=== PATIENT | female | born 1955 | race Caucasian/White ===

== ENCOUNTER 2020-05-20 11:08 | Emergency (ER) | payer OTHER ==
[~2020-05-20] VITALS: Ht 152.4 cm; Wt 89.4 kg
[2020-05-20] MEDS ORDERED: TOPROL XL50 MG PO (11:58)
[2020-05-20] MEDS ORDERED: LYRICA25 MG PO (11:59)
[2020-05-20] MEDS ORDERED: PLAVIX75 MG PO (11:59)
[2020-05-20] MEDS ORDERED: GLUCOPHAGE500 MG PO (11:59)
[2020-05-20] MEDS ORDERED: NEURONTIN400 MG PO (12:00)
[2020-05-20] MEDS ORDERED: PERCOCET 5-3251 EACH PO (14:43)
== END 2020-05-20 15:04 | disposition home or self-care (01) ==
LOC: ED 11:08
DX: S42.201A Unspecified fracture of upper end of right humerus, initial encounter for closed fracture (principal); W01.198A Fall on same level from slipping, tripping and stumbling with subsequent striking against other object, initial encounter; Z88.0 Allergy status to penicillin; Z79.899 Other long term (current) drug therapy; Z79.84 Long term (current) use of oral hypoglycemic drugs
CPT/HCPCS: 73030; 73080; 96372; 99283-25; J1170; J1885

== ENCOUNTER 2020-05-23 17:07 | Emergency (ER) | payer OTHER ==
[~2020-05-23] VITALS: Ht 152.4 cm; Wt 89.4 kg
[~2020-05-23 17:07] MED LIST: GLUCOPHAGE500 MG PO; LYRICA25 MG PO; NEURONTIN400 MG PO; PERCOCET 5-3251 EACH PO; PLAVIX75 MG PO; TOPROL XL50 MG PO
--- OUTSIDE RECORDS SUMMARY | 2020-05-23 17:10 | XMS ---
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 Selena has no Care Guidelines for this patient. Es VISIT COUNT (12 MO.) 2 [facility] [place] [facility]. TOTAL 2 NOTE: Visits indicate total known visits. ED/C VISIT TRACKING (12 MO.) 05/23/2020 17:08 [facility] [place] TYPE: Emergency COMPLAINT: - ARM PAIN 05/20/2020 11:09 [facility] [place] TYPE: Emergency COMPLAINT: - FALL, RIGHT ARM PAIN INPATIENT VISIT TRACKING (12 MO.) No inpatient visits to display in this time frame [email or web address]
[2020-05-23] MEDS ORDERED: SIMVASTATIN20 MG PO (17:24)
[2020-05-23] MEDS ORDERED: HYDROCHLOROTHIA25 MG PO (17:25)
[2020-05-23] MEDS ORDERED: LOSARTAN POTASS25 MG PO (17:25)
[2020-05-23] MEDS ORDERED: BACLOFEN10 MG PO (17:26)
[2020-05-23] MEDS ORDERED: PERCOCET 5-3251 EACH PO (18:36)
== END 2020-05-23 18:48 | disposition home or self-care (01) ==
LOC: ED 17:07
DX: S42.301D Unspecified fracture of shaft of humerus, right arm, subsequent encounter for fracture with routine healing (principal); W19.XXXD Unspecified fall, subsequent encounter; E11.9 Type 2 diabetes mellitus without complications; I10 Essential (primary) hypertension; Z87.891 Personal history of nicotine dependence; Z88.0 Allergy status to penicillin; Z79.899 Other long term (current) drug therapy; Z79.84 Long term (current) use of oral hypoglycemic drugs
CPT/HCPCS: 96372; 99283; J1170

== ENCOUNTER 2020-06-07 15:19 | Emergency (ER) | payer MEDICARE ==
[~2020-06-07] VITALS: Ht 152.4 cm; Wt 89.4 kg
[~2020-06-07 15:19] MED LIST changes: +BACLOFEN10 MG PO; +HYDROCHLOROTHIA25 MG PO; +LOSARTAN POTASS25 MG PO; +SIMVASTATIN20 MG PO
--- OUTSIDE RECORDS SUMMARY | 2020-06-07 15:22 | XMS ---
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 Selena has no Care Guidelines for this patient. Es VISIT COUNT (12 MO.) 3 [facility]. TOTAL 3 NOTE: Visits indicate total known visits. ED/C VISIT TRACKING (12 MO.) 06/07/2020 15:20 [facility] [place] TYPE: Emergency COMPLAINT: - RIGHT ARM PAIN 05/23/2020 17:08 [facility] [place] TYPE: Emergency COMPLAINT: - ARM PAIN DIAGNOSES: - Type 2 diabetes mellitus without complications - Other joint terminal attack controller (current) drug therapy - Unspecified fall, subsequent encounter - Essential (primary) hypertension - Unspecified fracture of shaft of humerus, right arm, subsequent encounter for fracture with routine healing - Personal history of nicotine dependence - penitentiary (current) use of oral hypoglycemic drugs - Allergy status to penicillin 05/20/2020 11:09 [facility] [place] TYPE: Emergency COMPLAINT: - FALL, RIGHT ARM PAIN DIAGNOSES: - Pain in right shoulder - Fall on same level from slipping, tripping and stumbling with subsequent striking against other object, initial encounter - Other joint terminal attack controller (current) drug therapy - penitentiary (current) use of oral hypoglycemic drugs - Unspecified fracture of upper end of right humerus, initial encounter for closed fracture - Allergy status to penicillin INPATIENT VISIT TRACKING (12 MO.) No inpatient visits to display in this time frame [email or web address]
[2020-06-07] MEDS ORDERED: PERCOCET 5-3251 EACH PO (16:52)
== END 2020-06-07 17:25 | disposition home or self-care (01) ==
LOC: ED 15:19
DX: S49.001A Unspecified physeal fracture of upper end of humerus, right arm, initial encounter for closed fracture (principal); V43.62XA Car passenger injured in collision with other type car in traffic accident, initial encounter; I10 Essential (primary) hypertension; E11.9 Type 2 diabetes mellitus without complications; Z87.891 Personal history of nicotine dependence; Z88.0 Allergy status to penicillin; Z79.899 Other long term (current) drug therapy; Z79.84 Long term (current) use of oral hypoglycemic drugs
CPT/HCPCS: 73060; 96374; 96375; 99284-25; J1170; J1885

== ENCOUNTER 2020-09-18 08:50 | Observation (INO) | payer MEDICARE ==
[~2020-09-18] VITALS: Ht 154.9 cm; Wt 91.8 kg
[~2020-09-18 08:50] MED LIST changes: +ACYCLOVIR400 MG PO; +ARMOUR THYROID30 MG PO; +COZAAR50 MG PO; +JARDIANCE25 MG PO; -LOSARTAN POTASS25 MG PO; +LYRICA150 MG PO; -LYRICA25 MG PO; +NEURONTIN100 MG PO; -NEURONTIN400 MG PO; +OMEPRAZOLE20 MG PO; +OXYCODONE HCL5 MG PO; +TOPROL XL25 MG PO; -TOPROL XL50 MG PO
--- NOTE | 2020-09-18 12:41 | NUR ---
09/18/20 1241 Angela Gutierrez- PT ARRIVES TO PACU NONAROUSABLE TO NOXIOUS STIMULI WITH AN OPA IN PLACE. RESP EVEN AND UNLABORED. OXYGEN SAT HIGH 90'S ON 6L VIA MASK.
--- NOTE | 2020-09-18 14:20 | NUR ---
REPORT RECEIVED FROM PUBLIC HEALTH AIDE AND PT CARE RESUMED. PT. BROUGHT ON STRETCHER ON 2L O2 NC. PT. DESATS FREQUENTLY WHILE SLEEPING BUT O2 SAT INCREASES GREATER THAN 90% WHEN AWAKENED. PACU REPORTS SHE HAS SLEEP APNEA. LEFT CHEST DRESSING C.D.I. WITH JOHN DRAINS. DRAINS HAVE A SMALL AMOUNT OF SANGUINOUS DRAINAGE IN EACH. IVF STARTED AND VITALS STABLE. PT. IS DROWSY AND ORIENTED TO ALL BUT DATE. PT. ON CPOX AND LEFT RESTING WITH BROTHER AT BEDSIDE.
--- NOTE | 2020-09-18 14:42 | NUR ---
PATIENT ON 2L VIA NC DUE TO SATS AT 87% ON ROOM AIR. PATIENT HAS IVF INFUSING, LR @ 85. PATIENT IS AWAKE AND EATING CRACKERS, SIPPIN ON SODA. PATIENT HAS ORDERED SANDWICH.
--- NOTE | 2020-09-18 15:20 | NUR ---
VITALS STABLE. LEFT CHEST DRESSING C.D.I. AND PT. REPORTS TOLERABLE PAIN THAT IS BURNING AT TIMES. [facility]
--- NOTE | 2020-09-18 16:20 | NUR ---
VITALS STABLE. LEFT CHEST DRESSING IS CDI. PT. REPORTS AMBULATED TO THE COMMODE WITH SBA AND TOLERATED WELL. VOIDED GREEN/YELLOW CLEAR URINE. PT. REPORTS INCREASED PAIN IN RIGHT ARM WHERE THERE IS A FRACTURE AND LEFT CHEST. ADMIN PRN MEDS.
--- NOTE | 2020-09-18 17:20 | NUR ---
VITALS STABLE. PT. REPORTS PAIN IN LEFT CHEST TOLERABLE. ALERT AND ORIENTED. TOLERATING SOLID FOODS. LEFT CHEST DRESSING CDI. BROTHER EDUCATED AND TEACH BACK USED ON EMPTYING JOHN DRAINS. PT. LEFT RESTING WITH CALL LIGHT IN REACH.
[2020-09-18] MEDS ORDERED: CLOBETASOL PROP50 ML TOP (18:19)
--- NOTE | 2020-09-18 19:00 | NUR ---
SHIFT REPORT RECEIVED FROM LEWIS LUI. PT RESTING IN CHAIR, NO NEEDS. ARA LOPEZ IN ROOM.
--- NOTE | 2020-09-18 19:37 | NUR ---
RN AMBULATORY ROUNDING NOTE. 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 PT INQUIRES ABOUT SCHEDULED MEDCIATIONS, EDUCATION PROVIDED. PT INQUIRES ABOUT NEED FOR BREAKTHROUGH PAIN MEDICATION ONCE THE BLOCK WEARS OFF. EDUCATION PROVIDED. PT DENIES FURTHER QUESTIONS, CONCERNS AT THIS TIME. COOKIE PROVIDED PER REQUEST. PT DENIES FURTHER NEEDS. CALL LIGHT IN REACH. WHITE BOARD UDPATED.
--- NOTE | 2020-09-18 20:12 | NUR ---
ASSESSMENT COMPLETED. GCS 15, A&O X4. PT COMPLAINS OF ABD CRAMPING AND MULTIPLE TRIPS TO BR AFTER RECEIVNG LACTULOSE, EDUCATION PROVIDED. LUNGS CLEAR. HEART TONES IRREGULAR. ABD SOFT, TENDER, MILDLY DISTENDED, BOWEL TONES ACTIVE. CMS INTACT. 1+ BLE EDEMA. IVs WNL, CDI, FLUSHED WELL. VS AND I&O COMPLETED BY LORE LOPEZ. NO OTHER NEEDS AT THIS TIME. CALL LIGHT IN REACH.
--- NOTE | 2020-09-18 21:25 | NUR ---
IN TO GET VITALS, I&Os DONE, DIET PEPSI PROVIDED AT THIS TIME, PT OK'D BP ON RIGHT UPPER ARM
--- NOTE | 2020-09-18 21:31 | NUR ---
ASSESSMENT COMPLETED. PT DENIES PAIN. SCHEDULED MEDS PROVIDED. IV FLUIDS INFUSING PER ORDER. LUNGS CLEAR, HEART TONES REGULAR. LEFT CHEST INCISION CDI. JOHN DRESSING CDI, DRAINS EMPTIED, SS DRAINAGE. ABD SOFT, NONTENDER, BOWEL TONES ACTIVE. CMS INTACT IN ALL BUT RIGHT ARM WHICH HAS DECREASED MOTOR. IV WNL, CDI, FLUSHED WELL. NO OTHER NEEDS AT THIS TIME. CALL LIGHT IN REACH.
--- NOTE | 2020-09-18 22:40 | NUR ---
PT STATES SHE HAS ITCHING AND NAUSEA, PRN ZOFRAN PROVIDED. NO OTHER NEEDS. CALL LIGHT IN REACH.
--- NOTE | 2020-09-18 22:50 | NUR ---
CALL LIGHT ON, SBA PT UP TO THE TOILET, PT THEN BACK TO BED, RN ASST TO BOOST PT AND CHECK ON PTs PAIN, NO FURHTER NEEDS AT THIS TIME
--- NOTE | 2020-09-18 22:57 | NUR ---
PT REPORTS 7/10 PAIN IN CHEST AND RIGHT ARM. PRN PAIN MED PROVIDED. NO OTHER NEEDS AT THIS TIME.
--- NOTE | 2020-09-19 00:54 | NUR ---
in to provide pt with ice chips and rifilled diet pepsi, no further needs
--- NOTE | 2020-09-19 01:24 | NUR ---
NEW BAG IV FLUIDS PROVIDED. PT UP TO BR AND BACK TO BED. VS AND I&O COMPLETED. NO OTHER NEEDS. CALL LIGHT IN REACH.
--- NOTE | 2020-09-19 03:18 | NUR ---
PT CALLED, SBA WITH IV TO THE TOILET, THEN TO BED, DIET SODA REFILLED, NO FURTHER NEEDS
--- NOTE | 2020-09-19 03:28 | NUR ---
ASSESSMENT COMPLETED. PT PAIN 7/10 IN CHEST AND RIGHT ARM, PRN PAIN MED PROVIDED. SLIGHT SHADOWING ON JOHN DRAIN DRESSING. 2 PINPOINT BLOOD SPOTS ON INCISION DRESSING. JOHN DRAINS WNL, SS DRAINAGE. GCS 15, A&O X4. PT CAN BE FORGETFUL AT TIMES. ABD SOFT, NONTENDER, BOWEL TONES ACTIVE, PT STATES NORMAL. CMS INTACT IN ALL BUT RIGHT ARM WHICH HAS DECREASED MOTOR. IV WNL. CPOX 96% RA. SCDs ON. IV FLUIDS INFUSING. NO OTHER NEEDS AT THIS TIME. CALL LIGHT IN REACH.
--- NOTE | 2020-09-19 05:30 | NUR ---
IN ROOM TO ADMINISTER SCHEDULED TYLENOL AND THYROID MEDICATION PER REQUEST OF PRIMARY RN RODNEY. pt REPORTS INCREASING PAIN TO LEFT CHEST INCISION SITE. pt ALSO REPORTS GENERALIZED ITCHINESS, REPORTS ITCHING IF SHE DOESN'T RECEIVE HER SCHEDULED MEDS, SCHEDULED THYROID GIVEN MENTIONED ABOVE. PRIMARY RN AWARE OF REPORTS OF ITCHING. JESSICA TORREZ IN ROOM TO COLLECT VS AND I&O'S. CALL LIGHT IN REACH.
--- NOTE | 2020-09-19 05:35 | NUR ---
IN TO GET VITALS, RN IN FOR AM MED, PT NOW UP TO VOID, SBA WITH IV POLE, ICE WATER TOPPED OFF, NO FURTHER NEEDS AT THIS TIME
--- NOTE | 2020-09-19 05:57 | NUR ---
PATIENT CALLED BUILDING ESTIMATOR SYSTEM FOR BREAKFAST ORDER TO BE CHANGED AND FOR ASSISTANCE WITH TANGLED CORDS. PATIENT HAS CALL LIGHT IN REACH. DENIES ANY FUTHER NEEDS AT THIS TIME.
--- NOTE | 2020-09-19 06:13 | NUR ---
PT PAIN MANAGED WITH SCHEDULED AND PRN MEDS. DRESSINGS WNL. PT HAD 80ML SS OUTPUT TOTAL FROM JOHN DRAINS. VSS. UOS. AFEBRILE. IV WNL. SBA FOR TRANSFERS. RIGHT ARM POSITIONED ON PILLOWS FOR COMFORT. PT COMPLAINED OF ITCHING, STATES IT WAS RELIEVED BY EATING ICE. PT HAD ONE EPISODE OF NAUSEA WITH A PAIN MED.
--- NOTE | 2020-09-19 06:47 | NUR ---
CPOX ALARMING, SPD ALERT, FIXED SETTING, NO FURTHER NEEDS
[2020-09-19] MEDS ORDERED: IBUPROFEN600 MG PO (10:05)
[2020-09-19] MEDS ORDERED: OXYCODON-ACETA1 EAC2 PO (10:05)
[2020-09-19] MEDS ORDERED: ACETAMINOPHEN500 MG PO (10:05)
--- NOTE | 2020-09-19 11:28 | OR ---
[facility] [address], [place] [address] Signed DATE OF OPERATION: 09/18/2020 SURGEON: Georgina Maya MD PREOPERATIVE DIAGNOSES: 1. Left infiltrating ductal breast carcinoma, upper outer aspect near the areolar margin. 2. Obesity. POSTOPERATIVE DIAGNOSES: 1. Left infiltrating ductal breast carcinoma, upper outer aspect near the areolar margin. 2. Obesity. 3. [place] lymph node, deep axilla, negative on frozen exam. PROCEDURES: 1. Injection of methylene blue dye for sentinel lymph node identification. 2. Deep axillary sentinel lymph node biopsy x4. 3. Left total mastectomy. ANESTHESIA: General LMA; Dolly Ruiz CRNA and preoperative serratus block (ropivacaine and Decadron). INDICATION: This 65-year-old white woman [facility] was found on mammogram to have a finding in the left breast considered suspicious for malignancy. On September 10, 2020, she underwent image-guided biopsy by Dr. Keegan Chaves, which confirmed infiltrating ductal carcinoma, grade 1. There was no evidence of lymphovascular invasion. There was no in situ component. The lesion is palpable and located in the upper outer aspect near the areolar margin. There is no sign of axillary adenopathy clinically. Her chest x-ray is normal. The patient does have family history of breast cancer in her mother and maternal grandmother. She has had annual mammograms annually. She has been presented options of breast conservation therapy including partial mastectomy, radiation therapy and sentinel lymph node biopsy, but strongly prefers to have total mastectomy, sentinel lymph node biopsy, possible axillary dissection. Those discussions were outlined elsewhere. The risks of bleeding, infection, cosmetic deformity, and so forth were reviewed with her in detail. Given the size of the mass, it is uncertain if adjuvant radiation therapy will be necessary... that will depend on the final pathologic findings related to tumor size. Electronically Signed By: GEORGINA MAYA MD 09/19/20 1128 PATIENT NAME: CARLO FLORIAN OPERATIVE REPORT DATE OF : 55 REPORT #: [id number] PHYSICIAN: GEORGINA MAYA MD PCP: BERNARDA FORD MD REPORT IS CONFIDENTIAL AND NOT TO BE RELEASED WITHOUT AUTHORIZATION [facility] [address], [place] [address] Signed FINDINGS: Four blue sentinel lymph node were identified and frozen pathology on two of the four showed no evidence of metastatic disease. The two smaller nodes were deemed unacceptable for frozen evaluation due some technical limitations of the microtome tody and were preserved for permanent pathology. There was no sign of worrisome adenopathy on palpation. Good uptake of methylene blue dye, in four sentinel lymph nodes was noted. DESCRIPTION OF PROCEDURE: The patient was brought to the operating room, given a general anesthetic by LMA technique. A serratus block on the left side was undertaken in the preop staging area. In the supine position, 1.5 mL of methylene blue dye was injected in the left lateral periareolar area for sentinel lymph node identification. The breast and upper torso and arm were prepared with a chlorhexidine based solution. An elliptical incision was made incorporating the nipple-areolar complex. Superior and inferior flaps were developed with electrocautery dissection on this occasion. The breast was excised in a superior medial to lateral position, excising the pectoralis fascia in continuity with the breast itself. The palpable mass was widely free of the resection margin. Upon arriving at the lateral margin of the pectoralis muscle the axillary fat pad was easily identified. Examination for methylene blue laden lymph nodes were undertaken. None were immediately evident and therefore the fascial plane was incised with electrocautery and blunt dissection undertaken identifying promptly four small blue sentinel lymph nodes, they were all excised and passed for frozen pathology. Hemostasis in this area of dissection was undertaken primarily with 2-0 silk suture. Irrigation was undertaken with sterile water for its tumor lytic effect, any stray areas of oozing were secured with electrocautery. Note is made of low axillary lymph nelson tissue having been excised in continuity with the breast as there were some palpable but not suspicious lymph nodes within the lower aspect of the axilla itself. Frozen pathology returned and reported by Dr. Chris showing that the two largest methylene blue laden lymph nodes were negative for metastatic disease. The other two lymph nodes which were much smaller were deemed inadvisable for frozen pathology as the microtome in the lab would more likely than not destroy the tissue and therefore those two were left for permanent pathology. Electronically Signed By: GEORGINA MAYA MD 09/19/20 1128 PATIENT NAME: CARLO FLORIAN OPERATIVE REPORT DATE OF : 55 REPORT #: [id number] PHYSICIAN: GEORGINA MAYA MD PCP: BERNARDA FORD MD REPORT IS CONFIDENTIAL AND NOT TO BE RELEASED WITHOUT AUTHORIZATION [address] [address] Signed Through two separate stab incisions, 10 mm flat Jf drains were placed one beneath the flap, the other in the mid axilla. The wound was closed with interrupted 2-0 Vicryl in deep dermal layer and running subcuticular 3-0 Vicryl for the skin itself. Steri-Strips were applied as was a silver sponge dressing (Acticoat type). The drains were secured to bulb suction. Good vascularity of the superior and inferior flaps was noted. Blood loss was estimated at 100 mL. Sponge, needle and instrument counts reported as correct x3. MD RIKA Nguyen/MODL /[id number] cc: MD Dr. Bernarda Caro Copies: KEEGAN CHAVES MD ~ Electronically Signed By: GEORGINA MAYA MD 09/19/20 1128 PATIENT NAME: CARLO FLORIAN OPERATIVE REPORT DATE OF : 55 REPORT #: [id number] PHYSICIAN: GEORGINA MAYA MD PCP: BERNARDA FORD MD REPORT IS CONFIDENTIAL AND NOT TO BE RELEASED WITHOUT AUTHORIZATION
--- NOTE | 2020-09-19 11:50 | NUR ---
ALL DISCHARGE INSTRUCTIONS REVIEWED WITH PT. AND ALL QUESTIONS ANSWERED. PT.'S SISTER WAS EDUCATED ON HOW TO EMPTY JOHN DRAINS AND DEMONSTRATED. PT. LEFT WITH ALL BELONGINGS AND ADMIN. OXYCODONE FOR INCISION PAIN PRIOR TO LEAVING.
--- NOTE | 2020-09-25 17:19 | PATH ---
[facility] [address] [place], [place] [address] Signed SPECIMEN(S): A SENTINEL LYMPH NODES 1, 2, 3, AND 4 SPECIMEN(S): B LEFT BREAST AND AXILLA SPECIMEN SOURCE: A. SENTINEL LYMPH NODES 1, 2, 3, AND 4 B. LEFT BREAST AND AXILLA CLINICAL HISTORY: Ductal breast carcinoma on left side. FROZEN SECTION DIAGNOSIS: A. [place] lymph nodes #1, #2, #3 and #4: - No evidence of malignancy in two lymph nodes (career representative sections frozen). Note: Cryostat malfunctioned and I was unable to get sections of the lymph nodes #1 and #2. Discussed with Dr. Tellez. (Dr. Chris, 11:56 AM, 09-18-2020) Frozen section diagnoses called to Dr. Tellez at 11:56 AM, 09-18-2020. FINAL PATHOLOGIC DIAGNOSIS: A. [place] lymph nodes #1-4, left axilla, excisional biopsy: - No evidence of malignancy in four lymph nodes (0/4). - See Comment and Microscopic description. B. Breast and axillary contents, left, total mastectomy: - Invasive ductal carcinoma with the following features: - Tumor site: Central. - Tumor size: 19 x 17 x 16 mm. - Histologic type: Invasive carcinoma of no special type (ductal). - Histologic grade (Randolph histologic score): - Glandular (acinar)/tubular differentiation: Score 2. - Nuclear pleomorphism: Score 2. - Mitotic rate: Score 1. - Overall grade: Grade 1 of 3 (total score 5/9). - Tumor focality: Single focus of invasive carcinoma. - Ductal carcinoma in situ (DCIS): Present, negative for extensive intraductal component (EIC). - Architectural patterns: Solid and cribriform. - Nuclear grade: Grade 2 (intermediate) - Necrosis, central (expansive "comedo" necrosis). - Margins: PATIENT NAME: CARLO FLORIAN PATHOLOGY DATE OF : 55 REPORT #: [id number] PHYSICIAN: [facility] PCP: RANJIT FORD MD REPORT IS CONFIDENTIAL AND NOT TO BE RELEASED WITHOUT AUTHORIZATION [facility] [address] [place], [place] [address] Signed - Invasive carcinoma margins: Uninvolved by invasive carcinoma. - Greater than 10 mm from superior, inferior, and posterior margins. - DCIS margins: Uninvolved by DCIS. - Greater than 10 mm from superior, inferior, and posterior margins. - Regional lymph nodes: Uninvolved by tumor cells. - Total number of lymph nodes examined: 7. - Number of sentinel nodes examined: 4. - Treatment effect in the breast: No known pre-surgical therapy. - Lymphovascular invasion: Not identified. - Additional findings: Incidental intraductal papillomas (4 mm), fibrocystic changes. - Breast biomarker studies: Please refer to previously performed testing ([id number]), reported as ER positive, DE positive, HER2 negative by IHC, and Ki-67 proliferation index of 31.4%. - Pathologic stage classification (pTNM), AJCC 8th ed.): pT1c pN0. COMMENT: Three additional axillary lymph nodes were identified within the axillary portion of the mastectomy specimen, making the total lymph node count (sentinel and nonsentinel) 7. As part of [facility] Quality Improvement Program, this case was reviewed by another member of our pathology staff. NAL:cml:C1NR MICROSCOPIC EXAMINATION: Histologic sections of all submitted blocks are examined by light microscopy. These findings, together with the gross examination, support the pathologic diagnosis. Immunohistochemical stains (with appropriately staining controls) were performed: A. Pancytokeratin (AE1/AE3) was performed on each career representative section of the sentinel lymph nodes and confirms the absence of metastatic tumor cells. B. E-cadherin and p120 demonstrate membranous staining of the tumor, supporting ductal origin. Smooth muscle myosin heavy chain on a career representative section of adenosis confirms the presence of myoepithelial cells. GROSS DESCRIPTION: Two specimens are received in two containers, labeled "FlorianJennyyn." A. The specimen, labeled `Carlo Hale, is received fresh for frozen section diagnosis and consists of four undesignated possible lymph node PATIENT NAME: CARLO FLORIAN PATHOLOGY DATE OF : 55 REPORT #: [id number] PHYSICIAN: JULIETTE PATHOLOGY PCP: RANJIT FORD MD REPORT IS CONFIDENTIAL AND NOT TO BE RELEASED WITHOUT AUTHORIZATION [place] [id number] [place], [place] [address] Signed candidates that measure from 0.6 cm up to 1.3 cm in greatest dimension. Upon removal of the adipose tissue, lymph node are 0.3-0.8 cm in greatest dimension. Nodes one and three are inked blue. Each lymph node is bisected. Half of the lymph nodes #1 and #2 frozen in (AFR1), half of nodes #3 and number for frozen as (AFR2). Remainders of #1 and #2 are submitted in (A3) and remainders of half of #3 and #4 in (A4). B. The specimen, labeled "Carlo Florian, left breast and axilla," is received in formalin and consists of 1231 gram oriented left breast that is 24.1 x 19.5 x 7.2 cm. The 25.9 x 9.7 cm ellipse of skin has a centrally located, everted nipple. The skin surface is estevez and wrinkled with a blue dye discoloration lateral to the nipple. A suture is present identifying the low axillary lymph nodes. The specimen is inked as follows: superior - blue; inferior - green; and posterior - black. The specimen is serially sectioned from medial to lateral to reveal a 1.9 x 1.7 x 1.6 cm pink ill-defined firm mass centrally located within the breast. The mass is 3.3 cm from the anterior skin, 3.6 cm from the posterior soft tissue margin, 6.5 cm from the superior soft tissue margin, 5.8 cm from the inferior soft tissue margin, 8.2 cm from the medial soft tissue margin, and 7.6 cm from the lateral soft tissue margin. Approximately 2.5 cm medial to the mass is an area of irregular nodularity that is 3.5 x 3.2 x 1.6 cm a suture identifies the low axillary lymph nodes. Sectioning through this area reveals three possible lymph nodes that measure up to 1.5 cm in greatest dimension. An additional five possible lymph nodes are grossly identified superior to the suture. Attached to the lateral aspect is a 14.5 x 5.5 x 3.6 cm axillary tail approximately 70% of the specimen is a yellow-estevez greasy adipose tissue and 30% is a white-estevez rubbery fibrous tissue. [employer] sections are submitted in 18 cassettes. Cassette summary: (B1) nipple and skin (B2) posterior soft tissue resection margin closest to mass (B3-B4) mass to adjacent fibroadipose tissue (B5-B8) irregular nodularity medial to mass submitted from superior to inferior (B9) fibroadipose tissue upper inner quadrant (B10) fibroadipose tissue upper outer quadrant (B11) fibroadipose tissue lower outer quadrant PATIENT NAME: CARLO FLORIAN PATHOLOGY DATE OF : 55 REPORT #: [id number] PHYSICIAN: JULIETTE FAULKNER PCP: RANJIT FORD MD REPORT IS CONFIDENTIAL AND NOT TO BE RELEASED WITHOUT AUTHORIZATION [facility] [address] [place], [place] [address] Signed (B12) fibroadipose tissue lower inner quadrant (B13) two possible lymph nodes, submitted whole (near suture) (B14) one possible lymph node, submitted whole, (near suture) (B15) one possible lymph node, serially sectioned (superior to suture) (B16) one possible lymph node, bisected (superior to suture) (B17) one possible lymph node, serially sectioned (superior to suture) (B18) one possible lymph node, bisected (superior suture). Cold ischemia time: 5 minutes Approximate Formalin time: 48-72 hours. FB (under the direct supervision of a pathologist) The Gross Description was prepared using a voice recognition system. The report was reviewed for accuracy; however, sound-alike word errors, addition and/or deletions may occur. If there is any question about this report, please contact Client Services. ADDITIONAL NOTES: Immunohistochemical and/or in situ hybridization studies were performed on this case with the appropriate positive controls that react as expected. This test was developed and its performance characteristics determined by [facility]. It has not been cleared or approved by the U.S. Food and Drug Administration. The FDA has determined that such clearance or approval is not necessary. This test is used for clinical purposes. It should not be regarded as investigational or for research. [facility] is certified under the Clinical Laboratory Improvement Amendments of 1988 (CLIA) as qualified to perform high complexity clinical laboratory testing. This assay has not been validated for specimens that have been decalcified. PERFORMING LABORATORY: The [facility], [address] [place] [address] (CLIA# [id number]). The technical component was performed [place] [place] [address] (Network Security Engineer: Cat Colón MD; CLIA# [id number]). Professional interpretation was performed by [facility], [address] [place] [address] (CLIA# [id number]). PATIENT NAME: CARLO FLORIAN PATHOLOGY DATE OF : 55 REPORT #: [id number] PHYSICIAN: JULIETTE PATHOLOGY PCP: RANJIT FORD MD REPORT IS CONFIDENTIAL AND NOT TO BE RELEASED WITHOUT AUTHORIZATION [place] [address] Signed Diagnostician: Willa Chris MD Pathologist Electronically Signed 09/25/2020 Copies: ~ PATIENT NAME: FLORIANCARLO PATHOLOGY DATE OF : 55 REPORT #: [id number] PHYSICIAN: JULIETTE PATHOLOGY PCP: RANJIT FORD MD REPORT IS CONFIDENTIAL AND NOT TO BE RELEASED WITHOUT AUTHORIZATION
== END 2020-09-19 11:50 | disposition home or self-care (01) ==
LOC: DS 08:50 → MS 14:15 → DS 14:20 → MS 14:21
PROVIDERS: ADMIT Surgery; ATTEND Surgery
PROC: 0HTU0ZZ Resection of Left Breast, Open Approach (ICD-10-PCS; principal; 2020-09-18 09:30)
PROC: 07D Lymphatic and Hemic Systems, Extraction (ICD-10-PCS; 2020-09-18 09:30)
DX: C50.412 Malignant neoplasm of upper-outer quadrant of left female breast (principal); D24.2 Benign neoplasm of left breast; I10 Essential (primary) hypertension; E11.9 Type 2 diabetes mellitus without complications; E66.9 Obesity, unspecified; G47.33 Obstructive sleep apnea (adult) (pediatric); G89.18 Other acute postprocedural pain; Z80.3 Family history of malignant neoplasm of breast; Z86.73 Personal history of transient ischemic attack (TIA), and cerebral infarction without residual deficits; Z87.891 Personal history of nicotine dependence; Z68.39 Body mass index [BMI] 39.0-39.9, adult; Z79.84 Long term (current) use of oral hypoglycemic drugs; Z17.0 Estrogen receptor positive status [ER+]
CPT/HCPCS: 00404; 36415; 62324; 64421; 76942; 85025; 88307; 88341; 88342; J0131; J1100; J1170; J1644; J1885; J2001; J2250; J2270; J2405; J2704; J2795; J3010; J3475; J7121; Q9968